=== PATIENT | male | born 1950 | race Caucasian/White ===

== ENCOUNTER 2017-01-05 23:15 | Inpatient (IN) | payer OTHER ==
--- NOTE | ~2017-01-05 | OP ---
Record Of Operation [facility] [address] [place]. [address] NAME: CINTHYA MARSH : 54 STATUS : ADM IN PAT#: [id number] AGE: 66 ADM/REG DATE : 01/06/17 MR#: [id number] REPORT SERV DATE: 01/11/17 DICTATED BY: ROLY CHAVIS III DATE: 01/11/17 REPORT STATUS : Draft TRANSCRIBED BY: MODL DATE: 01/11/17 DATE OF PROCEDURE: 01/11/2017 PREOPERATIVE DIAGNOSES: 1. Right ureteral calculus. 2. Sepsis of urinary origin. POSTOPERATIVE DIAGNOSES: 1. Right ureteral calculus. 2. Bladder calculi x3. PROCEDURES: Cystoscopy, right retrograde pyelogram, and right ureteral stent placement. SURGEON: Roly Chavis M.D. ANESTHESIA: General. INDICATION: Mr. Marsh is a 66-year-old white male with a history nephrolithiasis. He is admitted with obstructive pyelonephritis. CT scan revealed a 5-6 mm right ureteral calculus at the level of the iliac vessels with hydronephrosis above. He has been found to have sepsis of urinary origin and has received several days of vancomycin. Consent is obtained for cystoscopy, right retrograde pyelogram, and stent placement. DESCRIPTION OF PROCEDURE: After consent was obtained, the patient was identified. He was taken to the OR and put to sleep. He was positioned in the low lithotomy position and prepped and draped in usual fashion. The 22-German cystoscope was made ready and advanced along the course of urethra into the bladder. The prostate did appear to be enlarged. The bladder was entered. Three bladder stones were noted. A cone-tipped ureteral catheter was flushed and inserted into the right ureteral orifice. Attempts at retrograde pyelogram were performed. The contrast went up to the area of the stone, but did not go past it and the ureter was somewhat patulous preventing opacification and so there would be backflow with contrast. I was able to pass a Glidewire up into the proximal ureter and collecting system. Over this, I advanced the Grover. The wire was removed and contrast was injected through the Grover eliminating the dilated pyelocaliceal system. The guidewire was then advanced through the Grover and the Grover was removed. A 7 x 26 cm double-J ureteral stent was advanced over the wire. When in position, the wire was removed. The stent was noted to coil in the renal collecting system, as well as the bladder. The bladder was then drained. The scope was removed. The patient was awakened and taken to recovery in stable condition. PH/MODL Roly Chavis III, M.D. Record Of [address] [address] NAME: CINTHYA MARSH : 54 STATUS : ADM IN [facility]#: [id number] AGE: 66 ADM/REG DATE : 01/06/17 MR#: [id number] REPORT SERV DATE: 01/11/17 DICTATED BY: ROLY CHAVIS III DATE: 01/11/17 REPORT STATUS : Draft TRANSCRIBED BY: SERVANDO DATE: 01/11/17 / [id number] CC: MD Sahil Overton M.D.
--- NOTE | ~2017-01-05 | DS ---
Discharge Summary [address] [place]. [address] NAME: CINTHYA MARSH : 54 STATUS : DIS IN PAT#: [id number] AGE: 66 ADM/REG DATE : 01/06/17 MR#: [id number] REPORT SERV DATE: 01/14/17 DICTATED BY: RAI VALDOVINOS DATE: 01/13/17 REPORT STATUS : Draft TRANSCRIBED BY: MODL DATE: 01/13/17 ADMISSION DATE: 01/06/2017 DISCHARGE DATE: 01/13/2017 PROCEDURES DONE: 1. 01/06/2017, chest x-ray: Lungs are clear. Heart size normal. 2. 01/06/2017, KUB: Extensive fatty infiltration of liver, similar to previous CT scans. Mild right hydronephrosis. The patient has had previous hydronephrosis due to ureteral stone on abdominal CT from 06/2013. Renal stone CT is recommended to assess current ureteral stones. 3. 01/07/2016, chest x-ray: No acute cardiopulmonary abnormality. 4. 01/07/2016, CT of the chest without contrast: No thoracic adenopathy or active pulmonary disease. Moderate focal fibrosis at the posterior left lung base. Moderate coronary artery calcification. Nonspecific hepatic steatosis pattern. 5. 01/06/2017, CT scan of the abdomen and kidney per protocol: Right ureteral calculus with moderate proximal obstructive dilatation, perinephric/periureteral edema. Bilateral nonobstructing intrarenal calculi. Urinary bladder calculi. Hepatomegaly with hepatic steatosis. Splenomegaly. Fat-containing umbilical hernia. Diverticulosis without evidence of diverticulitis. Abdominal aortic aneurysm. 6. 01/06/2017, V/Q scan: Study is low probability for PE. Extensive airway deposition of aerosolized tracers consistent with airway disease. 7. 01/10/2017, operative report by Dr. Ann:. a. Preoperative Diagnosis: Right ureteral calculus with sepsis of urinary origin. b. Postoperative Diagnosis: Right ureteral calculus with bladder calculi x3. The patient underwent cystoscopy with right retrograde pyelogram and right ureteral stent placement. CONSULT: Albino Farmer M.D. for Urology. REASON FOR ADMISSION: Shortness of breath and cough. HISTORY OF HOSPITAL STAY: A 66-year-old white male with past medical history of nephrolithiasis with history of hydronephrosis, diabetes type 2, AAA of 3.8 cm, and hypothyroidism presenting with cough and shortness of breath of unknown etiology. The patient was admitted for further evaluation of his cough and shortness of breath. A V/Q scan was done which shows negative for PE. Two chest x-rays show the lungs are clear with no active pulmonary disease. However, CT scan of the abdomen and pelvis shows right hydronephrosis with right renal calculi. Urology was consulted for further evaluation. Dr. Ann did a right pyelogram and cystoscopy which shows bladder calculi as well as renal calculi. The patient is also having double-J stent placed on the right side. Fortunately for the patient, his renal function also greatly improved with treatment. His initial creatinine was 0.66, and upon discharge, creatinine was 1.55. The patient was advised to continue drinking fluids in order to get his kidney function back to normal. In addition, the patient's glucose has also been well-tolerated during the hospital stay. Made some adjustments regarding his insulin regarding requiring level 3 as well as Levemir 20 units Discharge Summary [address] [address] NAME: CINTHYA MARSH : 54 STATUS : DIS IN PAT#: [id number] AGE: 66 ADM/REG DATE : 01/06/17 MR#: [id number] REPORT SERV DATE: 01/14/17 DICTATED BY: RAI VALDOVINOS DATE: 01/13/17 REPORT STATUS : Draft TRANSCRIBED BY: SERVANDO DATE: 01/13/17 subcu a.m. and 60 units subcu p.m. DISPOSITION: The patient feels fine, no complaints. ACTIVITIES: As tolerated. DIET: Diabetic. INSTRUCTIONS UPON DISCHARGE: The patient to follow up with Urology within two weeks' time. MEDICATION UPON DISCHARGE: 1. Aleve 440 mg p.o. daily p.r.n. 2. Levemir 60 units subcu at bedtime. 3. Insulin sliding scale, level 3. 4. Levothyroxine 150 mcg p.o. daily. 5. Levemir 20 subcu daily. 6. Metformin 1000 mg p.o. b.i.d. 7. Humalog 15 units subcu a day. 8. Lisinopril 5 mg p.o. daily. DIAGNOSES UPON DISCHARGE: 1. Shortness of breath and cough secondary to right renal calculi/hydronephrosis. 2. Renal calculi with hydronephrosis, status post cystoscopy with right double-J stent. 3. Diabetes type 2. 4. Acute kidney injury secondary to hydronephrosis. 5. Hypothyroidism. 6. Obesity. OMER/MODL Rai Valdovinos MD / [id number] CC: MD Sahil Abraham M.D.
--- NOTE | ~2017-01-05 | CN ---
Consultation Report [facility] [address] [place]. [address] NAME: CINTHYA MARSH : 54 STATUS : ADM IN PAT#: [id number] AGE: 66 ADM/REG DATE : 01/06/17 MR#: [id number] REPORT SERV DATE: 01/10/17 DICTATED BY: Albino GALLOWAY DATE: 01/10/17 REPORT STATUS : Draft TRANSCRIBED BY: MODL DATE: 01/10/17 CONSULTATION NOTE DATE OF CONSULTATION: 01/10/2017 CHIEF COMPLAINT: Recent sepsis with right hydronephrosis and obstructing stone. HISTORY OF PRESENT ILLNESS: Mr. Marsh is a 66-year-old white male, who is a patient of Dr. Gareth Ann. He has a history of urolithiasis and was admitted 01/06/2017 with "severe sepsis" and acute kidney injury with a creatinine of 2.18. CT and ultrasound on 01/06/2017 showed right hydronephrosis and obstructing 8 mm stone at L1 with some bladder stones. We were consulted this morning. His creatinine has improved from 2.18 to 1.66. His white count has decreased from 16.8 to 9.2. He is currently feeling better and is asymptomatic, specifically denied any flank pain or voiding dysfunction. His breathing has improved as well. 2/2 blood cultures were positive for Staph mecA and no urine culture was done. PAST MEDICAL HISTORY: Pneumonia, urolithiasis, diabetes mellitus, abdominal aortic aneurysm, hypothyroidism, COPD. PAST SURGICAL HISTORY: 1. Left knee surgery. 2. Laser lithotripsy of right ureteral stone. 3. Cystolitholapaxy. 4. Right foot surgery. HOME MEDICATIONS: Insulin, metformin, naproxen, thyroid medication. ALLERGIES: NO KNOWN DRUG ALLERGIES. REVIEW OF SYSTEMS: A full 14-point review of systems was obtained and was negative except as noted above. SOCIAL HISTORY: The patient is a former smoker. He drinks alcohol on occasion. He is retired. FAMILY HISTORY: The patient is adopted. No known urologic disease. PHYSICAL EXAMINATION: GENERAL: Comfortable appearing, 66-year-old white male, alert and oriented x3. Conversant. VITAL SIGNS: Afebrile with normal vital signs. HEENT: Normocephalic, atraumatic. CHEST: No respiratory distress. HEART: Regular rate and rhythm. Consultation Report [facility] [address] [place]. [id number] NAME: CINTHYA MARSH : 54 STATUS : ADM IN PAT#: [id number] AGE: 66 ADM/REG DATE : 01/06/17 MR#: [id number] REPORT SERV DATE: 01/10/17 DICTATED BY: Albino GALLOWAY DATE: 01/10/17 REPORT STATUS : Draft TRANSCRIBED BY: SERVANDO DATE: 01/10/17 ABDOMEN: Protuberant. Nontender, nondistended. No CVA tenderness elicited. No suprapubic distention. Normal appearing external genitalia. EXTREMITIES: Peripheral exam reveals a 1+ lower extremity edema. PERTINENT LABORATORY: As noted above. Review of imaging: CT shows an 8 mm stone at L1 on the right along with bladder stones. IMPRESSION: 1. Obstructing right ureteral stone. 2. 2/2 positive blood cultures for Staph mecA. 3. Leukocytosis, currently improving. 4. Acute kidney injury, currently improving. PLAN: I am not positive that this obstructing stone has a source of his Staph, but there is no other source. He does need drainage of his right kidney. Since he has improved overall and stable, I do not think that this is emergent, but we will keep him n.p.o. after midnight to allow Dr. Ann assess and consider likely stent placement in the morning. I discussed this with the patient and his , they are comfortable with this plan. If anything should change, then we can review our options. MADELYN/SERVANDO Albino Galloway M.D. / [id number] CC: MD Sahil Overton M.D. Paul Henson III, M.D.
--- NOTE | ~2017-01-05 | HP ---
History And Physical [address] [address] NAME: CINTHYA MARSH : 54 STATUS : ADM IN PAT#: [id number] AGE: 66 ADM/REG DATE : 01/06/17 MR#: [id number] REPORT SERV DATE: 01/06/17 DICTATED BY: DONTE TOLENTINO DATE: 01/06/17 REPORT STATUS : Draft TRANSCRIBED BY: MODL DATE: 01/06/17 DATE OF ADMISSION: 01/06/2017 CHIEF COMPLAINT: A 66-year-old male presenting with increasing shortness of breath and cough. HISTORY OF PRESENT ILLNESS: The patient's history was obtained through careful interview with patient and , coupled with review of [facility] and [facility] medical records. About two days prior to admission, the patient began to develop increasing shortness of breath and a nonproductive cough. He does get lightheadedness and subjective chills, but no fevers. He describes pleurisy in the right middle of his chest, sharp quality, 3/10 severity, exacerbated by coughing. No palpitations. No abdominal pain. No diarrhea. No rash. He claims he has good diabetes control. No change in appetite. REVIEW OF SYSTEMS: Otherwise 14-point review of systems was obtained and was negative. PAST MEDICAL HISTORY: 1. Pneumonia, 06/2016. 2. Nephrolithiasis with hydronephrosis, seen by Dr. Ann. 3. Diabetes. 4. Abdominal aortic aneurysm, 3.8 cm. 5. Hypothyroidism. PAST SURGICAL HISTORY: 1. Left knee surgery. 2. Right foot surgery. ALLERGIES: NO KNOWN DRUG ALLERGIES. SOCIAL HISTORY: Quit smoking. Drinks alcohol. Is . Lives in [place], [place]. Retired sheet metal journeyman. Has children, two daughters and has grandchildren. FAMILY HISTORY: Adopted. CURRENT MEDICATIONS: Levemir 60 units subcutaneous at bedtime, Humalog 15 units subcutaneous before each meal, Glucophage a 1000 mg p.o. b.i.d., Aleve, thyroid medication, kidney medication. PHYSICAL EXAMINATION: History And Physical [address] [address] NAME: CINTHYA MARSH : 54 STATUS : ADM IN [facility]#: [id number] AGE: 66 ADM/REG DATE : 01/06/17 MR#: [id number] REPORT SERV DATE: 01/06/17 DICTATED BY: DONTE TOLENTINO DATE: 01/06/17 REPORT STATUS : Draft TRANSCRIBED BY: SERVANDO DATE: 01/06/17 VITAL SIGNS: Temperature 98.5, pulse 146, blood pressure 162/70, respiratory rate 42, O2 saturation 93% on room air. GENERAL: Pleasant, cooperative male. He appears nontoxic. No significant distress. HEENT: Pupils equal, round, and reactive to light. No conjunctival pallor. No scleral icterus. Nares are patent. Oropharynx is clear of obstruction. Very dry mucous membranes. NECK: Trachea midline. No thyromegaly. LYMPH: No cervical lymphadenopathy. No supraclavicular lymphadenopathy. RESPIRATORY: Scattered wheezes and rhonchi on examination. No rales. The patient has a labored respiratory effort. No focal egophony. CARDIOVASCULAR: Tachycardic, regular rhythm. No murmurs, rubs, or gallops. No extremity edema is appreciated. ABDOMEN: Soft, nontender, nondistended. Normal bowel sounds auscultated throughout. No organomegaly. DERMATOLOGICAL: Warm and dry extremities. No pallor. No cyanosis. PSYCHIATRIC: Normal affect. Good mood. Alert and oriented x3. LABORATORY DATA: White blood cell count 22, hemoglobin 13, hematocrit 38, platelets 175. Sodium 134, potassium 3.9, chloride 101, bicarb 20, BUN 23, creatinine 2.35, glucose 315. Influenza negative. INR 1.2. Lactic acid 3.2 initially with a 3-hour repeat of 2.9. Procalcitonin is quite elevated at 12. Troponin 0.21. Liver enzymes within normal limits. ABG demonstrates pH 7.46, PaCO2 of 38, PaO2 of 79, and a bicarb of 21. STUDIES: 1. CT scan of the chest without contrast shows no acute process. 2. A V/Q scan was low probability. 3. EKG by my own evaluation shows sinus tachycardia, left anterior fascicular block. ASSESSMENT AND PLAN: 1. Severe sepsis with lactic acidosis of 3.2, tachycardia, tachypnea, white blood cell count of 22, acute renal failure, procalcitonin elevated at 12. Check blood cultures. Place on broad IV antibiotics including cefepime and vancomycin. 2. Chronic obstructive pulmonary disease. Place on Duo nebulizers. 3. Uncontrolled diabetes. Check hemoglobin A1c. Continue Levemir, basal insulin, and sliding scale insulin. 4. Elevated troponin, we will follow closely. Question stress response? Consider cardiology consult? Add aspirin. 5. Acute renal failure. Try IV fluids. Check renal ultrasound. Patient discussed with Dr. Larson, critical care physician. NEY/SERVANDO Donte Tolentino M.D. History And Physical [address] [address] NAME: CINTHYA MARSH : 54 STATUS : ADM IN [facility]#: [id number] AGE: 66 ADM/REG DATE : 01/06/17 MR#: [id number] REPORT SERV DATE: 01/06/17 DICTATED BY: DONTE TOLENTINO DATE: 01/06/17 REPORT STATUS : Draft TRANSCRIBED BY: SERVANDO DATE: 01/06/17 / [id number] CC: Jordi Duran M.D.
[~2017-01-05 23:15] MED LIST: ADVIL PO; ALEVE220 MG PO; CENTRUM TAB1 TAB PO; CIP5 PO; CLARIT10 PO; CRANBERRY1 TAB PO; GLUCPH PO; IBU-200200 MG PO; INSULIN; LEVAQUIN750 MG PO; LEVEMIR SC; LEVOTHYROXIN112 MCG PO; MUCINEX600 MG PO; PCET PO; PRIN5 PO; PYR200 PO; SYNTHROID137 MCG PO
[2017-01-05 23:33] LABS: BASOPHILS 0.1 %; BASOPHILS ABSOLUTE 0.02 10/3/uL (0.0-0.16); EOSINOPHILS 0 %; EOSINOPHILS ABSOLUTE 0.01 10/3/uL (0.0-0.53); ER CBC TAT 0 Hrs 16 MinsNP; HEMATOCRIT 37.9 % (40.0-51.0); HEMOGLOBIN 13.5 g/dL (13.6-17.8); IMMATURE GRANULOCYTES 0.4 %; IMMATURE GRANULOCYTES ABSOLUTE 0.09 10/3/uL (0.0-0.11); LYMPHOCYTES 5.1 %; LYMPHOCYTES ABSOLUTE 1.11 10/3/uL (0.67-4.30); MANUAL DIFF NO %; MEAN CORPUS HGB CONC 35.6 g/dL (32.0-36.0); MEAN CORPUSCULAR HEMOGLOB 32.8 pg (26.0-34.0); MEAN PLATELET VOLUME 10.4 fL (9.2-13.0); MONOCYTES 6.5 %; MONOCYTES ABSOLUTE 1.42 10/3/uL (0.21-1.20); NEUTROPHILS 87.9 %; NEUTROPHILS ABSOLUTE 19.31 10/3/uL (2.02-8.40); PLATELET COUNT 175 10/3/uL (150-400); RBC DISTRIBUTION WIDTH 14.2 % (12.0-16.0); RED CELL COUNT 4.12 10/6/uL (4.7-6.1)
[2017-01-05 23:40] LABS: INTERNATIONAL NORMAL RATI 1.2 UNITS (-); PROTIME (NOT ORD) 15.5 SEC (12.0-14.5)
[2017-01-05 23:51] LABS: A/G RATIO 0.7 (0.7-1.9); ALBUMIN 3.2 G/DL (3.5-5.0); CALCIUM, SERUM 9.5 MG/DL (8.5-10.4); CHLORIDE, SERUM 101 MMOL/L (96-112); GLOBULIN 4.5 G/DL (2.5-4.1); POTASSIUM, SERUM 3.9 MMOL/L (3.5-5.3); SGOT(AST) 44 U/L (5-40); SGPT(ALT) 56 U/L (5-65); SODIUM, SERUM 134 MMOL/L (135-148); TOTAL PROTEIN 7.7 G/DL (6.0-8.5)
[2017-01-05 23:53] LABS: ALKALINE PHOSPHATASE 87 U/L (45-117); BUN (BLOOD UREA NITROGEN) 23 MG/DL (6-23); CO2 (CARBON DIOXIDE) 20 MMOL/L (24-34); CREATININE 2.53 MG/DL (0.70-1.30); GFR AFRICAN AMERICAN 30 ML/MIN (>=60); GFR NON AFRICAN AMERICAN 26 ML/MIN (>=60); GLUCOSE, SERUM 315 MG/DL (60-99); TOTAL BILIRUBIN 1.1 MG/DL (0-1.2); TROPONIN I 0.21 NG/ML (<0.05)
[2017-01-05 23:56] LABS: LACTATE 3.2 MMOL/L (0.3-2.4)
[2017-01-06 00:15] LABS: BE (BASE EXCESS) -1.8 MEQ/L (0 +/- 2.5); CARBOXYHEMOGLOBIN 1.4 % (0-3); DEVICE NC; HCO3 (ACTUAL BICARBONATE) 20.8 MEQ/L (23-27); HEMOBLOGIN CONTENT 13.8 G/DL (14-18); INSTRUMENT SERIAL # 8087; METHEMOGLOBIN 0.3 % (0-3); O2 CONTENT 18.4 VOL% (18-24); PCO2 (CO2 TENSION) 30 MMHG (35-45); PO2 (O2 TENSION) 79 MMHG (79-93); SAMPLE Arterial; pH 7.46 (7.37-7.43)
[2017-01-06 00:16] LABS: INFLUENZA A SCREEN NEGATIVE (NEGATIVE); INFLUENZA B SCREEN NEGATIVE (NEGATIVE)
[2017-01-06] MEDS ORDERED: GLUCOPHAGE1000 MG PO (00:55)
[2017-01-06 00:56] LABS: D-DIMER QUANTITATIVE 3.85 ug/mLFEU (< 0.50)
[2017-01-06] MEDS ORDERED: LEVEMFLXPN SC (00:56)
[2017-01-06] MEDS ORDERED: HUMALOGPEN SC (00:58)
[2017-01-06] MEDS ORDERED: ALEVE220 MG PO (00:59)
[2017-01-06] MEDS ORDERED: LEVOTHYROXIN150 MCG PO (00:59)
[2017-01-06] MEDS ORDERED: PRIN5 PO (01:00)
[2017-01-06 04:32] LABS: ASCORBIC ACID (UR NOT ORDER) NEG (NEG); BILIRUBIN, URINE NEGATIVE (NEG); ER URINALYSIS TAT 0 Hrs 00 Mins; KETONE, URINE NEGATIVE (NEG); LEUKOCYTE ESTERASE(NOT OR SMALL (NEG); NITRITE (URINE) NEG (NEG); WBC (NOT ORDERED) (RFLEX) 84 (0-5)
[2017-01-06 08:18] LABS: BASOPHILS 0.1 %; BASOPHILS ABSOLUTE 0.02 10/3/uL (0.0-0.16); EOSINOPHILS 0.1 %; EOSINOPHILS ABSOLUTE 0.01 10/3/uL (0.0-0.53); HEMATOCRIT 36.7 % (40.0-51.0); HEMOGLOBIN 12.6 g/dL (13.6-17.8); IMMATURE GRANULOCYTES 0.3 %; IMMATURE GRANULOCYTES ABSOLUTE 0.05 10/3/uL (0.0-0.11); LYMPHOCYTES 5.3 %; LYMPHOCYTES ABSOLUTE 0.89 10/3/uL (0.67-4.30); MEAN CORPUS HGB CONC 34.3 g/dL (32.0-36.0); MEAN CORPUSCULAR HEMOGLOB 31.8 pg (26.0-34.0); MEAN CORPUSCULAR VOLUME 92.7 fL (80-100); MEAN PLATELET VOLUME 10.7 fL (9.2-13.0); MONOCYTES 6.1 %; MONOCYTES ABSOLUTE 1.03 10/3/uL (0.21-1.20); NEUTROPHILS 88.1 %; NEUTROPHILS ABSOLUTE 14.78 10/3/uL (2.02-8.40); PLATELET COUNT 165 10/3/uL (150-400); RBC DISTRIBUTION WIDTH 14.5 % (12.0-16.0); RED CELL COUNT 3.96 10/6/uL (4.7-6.1); WHITE BLOOD CELLS 16.8 10/3/uL (4.5-10.5)
[2017-01-06 08:19] LABS: MANUAL DIFF NO %
[2017-01-06 08:25] LABS: INTERNATIONAL NORMAL RATI 1.2 UNITS (-); PARTIAL THROMBO TIME 38.8 SEC (22.5-37.2); PROTIME (NOT ORD) 15.5 SEC (12.0-14.5)
[2017-01-06 08:39] LABS: A/G RATIO 0.7 (0.7-1.9); ALBUMIN 2.9 G/DL (3.5-5.0); ALKALINE PHOSPHATASE 99 U/L (45-117); BUN (BLOOD UREA NITROGEN) 23 MG/DL (6-23); CHLORIDE, SERUM 104 MMOL/L (96-112); CO2 (CARBON DIOXIDE) 20 MMOL/L (24-34); CREATININE 2.18 MG/DL (0.70-1.30); GFR AFRICAN AMERICAN 36 ML/MIN (>=60); GFR NON AFRICAN AMERICAN 31 ML/MIN (>=60); GLOBULIN 4.3 G/DL (2.5-4.1); GLUCOSE, SERUM 232 MG/DL (60-99); SGOT(AST) 58 U/L (5-40); SGPT(ALT) 55 U/L (5-65); SODIUM, SERUM 137 MMOL/L (135-148); TOTAL PROTEIN 7.2 G/DL (6.0-8.5); TROPONIN I 0.13 NG/ML (<0.05)
[2017-01-06 09:12] LABS: PROCALCITONIN 11.17 ng/mL (<0.5)
[2017-01-07 04:48] LABS: BASOPHILS 0.1 %; BASOPHILS ABSOLUTE 0.02 10/3/uL (0.0-0.16); EOSINOPHILS ABSOLUTE 0.14 10/3/uL (0.0-0.53); HEMATOCRIT 34.3 % (40.0-51.0); HEMOGLOBIN 11.6 g/dL (13.6-17.8); IMMATURE GRANULOCYTES 0.5 %; IMMATURE GRANULOCYTES ABSOLUTE 0.07 10/3/uL (0.0-0.11); LYMPHOCYTES ABSOLUTE 1.07 10/3/uL (0.67-4.30); MEAN CORPUS HGB CONC 33.8 g/dL (32.0-36.0); MEAN CORPUSCULAR HEMOGLOB 31.5 pg (26.0-34.0); MEAN CORPUSCULAR VOLUME 93.2 fL (80-100); MEAN PLATELET VOLUME 10.5 fL (9.2-13.0); MONOCYTES 10.9 %; MONOCYTES ABSOLUTE 1.47 10/3/uL (0.21-1.20); NEUTROPHILS 79.5 %; NEUTROPHILS ABSOLUTE 10.66 10/3/uL (2.02-8.40); PLATELET COUNT 144 10/3/uL (150-400); RBC DISTRIBUTION WIDTH 14.6 % (12.0-16.0); RED CELL COUNT 3.68 10/6/uL (4.7-6.1); WHITE BLOOD CELLS 13.4 10/3/uL (4.5-10.5)
[2017-01-07 04:53] LABS: MANUAL DIFF NO %
[2017-01-07 05:01] LABS: ALBUMIN 2.6 G/DL (3.5-5.0); BUN (BLOOD UREA NITROGEN) 23 MG/DL (6-23); CALCIUM, SERUM 8.7 MG/DL (8.5-10.4); CHLORIDE, SERUM 106 MMOL/L (96-112); CO2 (CARBON DIOXIDE) 22 MMOL/L (24-34); CREATININE 2.07 MG/DL (0.70-1.30); GFR AFRICAN AMERICAN 38 ML/MIN (>=60); GFR NON AFRICAN AMERICAN 33 ML/MIN (>=60); GLUCOSE, SERUM 150 MG/DL (60-99); PHOSPHORUS, SERUM 2.7 MG/DL (2.5-4.5); POTASSIUM, SERUM 3.9 MMOL/L (3.5-5.3); SODIUM, SERUM 139 MMOL/L (135-148)
[2017-01-07 06:48] LABS: PROCALCITONIN 10.75 ng/mL (<0.5)
[2017-01-08 05:24] LABS: BASOPHILS 0.2 %; BASOPHILS ABSOLUTE 0.03 10/3/uL (0.0-0.16); EOSINOPHILS 1.4 %; EOSINOPHILS ABSOLUTE 0.18 10/3/uL (0.0-0.53); HEMATOCRIT 33.6 % (40.0-51.0); HEMOGLOBIN 11.5 g/dL (13.6-17.8); IMMATURE GRANULOCYTES 0.7 %; IMMATURE GRANULOCYTES ABSOLUTE 0.09 10/3/uL (0.0-0.11); LYMPHOCYTES 6.8 %; LYMPHOCYTES ABSOLUTE 0.86 10/3/uL (0.67-4.30); MEAN CORPUS HGB CONC 34.2 g/dL (32.0-36.0); MEAN CORPUSCULAR HEMOGLOB 31.7 pg (26.0-34.0); MEAN CORPUSCULAR VOLUME 92.6 fL (80-100); MEAN PLATELET VOLUME 10.5 fL (9.2-13.0); MONOCYTES 10.4 %; MONOCYTES ABSOLUTE 1.31 10/3/uL (0.21-1.20); NEUTROPHILS 80.5 %; NEUTROPHILS ABSOLUTE 10.09 10/3/uL (2.02-8.40); PLATELET COUNT 159 10/3/uL (150-400); RBC DISTRIBUTION WIDTH 14.6 % (12.0-16.0); RED CELL COUNT 3.63 10/6/uL (4.7-6.1); WHITE BLOOD CELLS 12.6 10/3/uL (4.5-10.5)
[2017-01-08 05:30] LABS: MANUAL DIFF NO %
[2017-01-08 05:36] LABS: BUN (BLOOD UREA NITROGEN) 23 MG/DL (6-23); CALCIUM, SERUM 8.8 MG/DL (8.5-10.4); CHLORIDE, SERUM 105 MMOL/L (96-112); CO2 (CARBON DIOXIDE) 21 MMOL/L (24-34); CREATININE 1.84 MG/DL (0.70-1.30); GFR AFRICAN AMERICAN 44 ML/MIN (>=60); GFR NON AFRICAN AMERICAN 38 ML/MIN (>=60); POTASSIUM, SERUM 3.7 MMOL/L (3.5-5.3); SODIUM, SERUM 137 MMOL/L (135-148)
[2017-01-08 05:41] LABS: GLUCOSE, SERUM 114 MG/DL (60-99)
[2017-01-09 07:22] LABS: BASOPHILS 0.3 %; BASOPHILS ABSOLUTE 0.03 10/3/uL (0.0-0.16); EOSINOPHILS 1.6 %; EOSINOPHILS ABSOLUTE 0.18 10/3/uL (0.0-0.53); HEMATOCRIT 34.4 % (40.0-51.0); HEMOGLOBIN 11.9 g/dL (13.6-17.8); IMMATURE GRANULOCYTES 0.8 %; IMMATURE GRANULOCYTES ABSOLUTE 0.09 10/3/uL (0.0-0.11); LYMPHOCYTES 10.6 %; LYMPHOCYTES ABSOLUTE 1.22 10/3/uL (0.67-4.30); MEAN CORPUS HGB CONC 34.6 g/dL (32.0-36.0); MEAN CORPUSCULAR HEMOGLOB 32.2 pg (26.0-34.0); MEAN PLATELET VOLUME 10.4 fL (9.2-13.0); MONOCYTES ABSOLUTE 1.38 10/3/uL (0.21-1.20); NEUTROPHILS 74.7 %; NEUTROPHILS ABSOLUTE 8.63 10/3/uL (2.02-8.40); PLATELET COUNT 177 10/3/uL (150-400); RBC DISTRIBUTION WIDTH 14.7 % (12.0-16.0); WHITE BLOOD CELLS 11.5 10/3/uL (4.5-10.5)
[2017-01-09 07:28] LABS: MANUAL DIFF NO %
[2017-01-09 07:34] LABS: A/G RATIO 0.6 (0.7-1.9); ALBUMIN 2.5 G/DL (3.5-5.0); ALKALINE PHOSPHATASE 125 U/L (45-117); BUN (BLOOD UREA NITROGEN) 21 MG/DL (6-23); CALCIUM, SERUM 8.6 MG/DL (8.5-10.4); CHLORIDE, SERUM 105 MMOL/L (96-112); CO2 (CARBON DIOXIDE) 22 MMOL/L (24-34); CREATININE 1.67 MG/DL (0.70-1.30); GFR AFRICAN AMERICAN 49 ML/MIN (>=60); GFR NON AFRICAN AMERICAN 43 ML/MIN (>=60); GLOBULIN 4.2 G/DL (2.5-4.1); GLUCOSE, SERUM 131 MG/DL (60-99); POTASSIUM, SERUM 3.9 MMOL/L (3.5-5.3); SGOT(AST) 104 U/L (5-40); SGPT(ALT) 100 U/L (5-65); SODIUM, SERUM 138 MMOL/L (135-148); TOTAL BILIRUBIN 0.8 MG/DL (0-1.2); TOTAL PROTEIN 6.7 G/DL (6.0-8.5)
[2017-01-09 07:44] LABS: PLATELET ESTIMATE ADQ (ADEQUATE); RBC MORPHOLOGY NORM (NORMAL)
[2017-01-10 05:44] LABS: A/G RATIO 0.7 (0.7-1.9); ALBUMIN 2.5 G/DL (3.5-5.0); ALKALINE PHOSPHATASE 139 U/L (45-117); BUN (BLOOD UREA NITROGEN) 18 MG/DL (6-23); CALCIUM, SERUM 8.7 MG/DL (8.5-10.4); CHLORIDE, SERUM 105 MMOL/L (96-112); CO2 (CARBON DIOXIDE) 23 MMOL/L (24-34); CREATININE 1.66 MG/DL (0.70-1.30); GFR AFRICAN AMERICAN 50 ML/MIN (>=60); GFR NON AFRICAN AMERICAN 43 ML/MIN (>=60); GLOBULIN 3.7 G/DL (2.5-4.1); GLUCOSE, SERUM 173 MG/DL (60-99); POTASSIUM, SERUM 3.8 MMOL/L (3.5-5.3); SGOT(AST) 109 U/L (5-40); SGPT(ALT) 118 U/L (5-65); SODIUM, SERUM 142 MMOL/L (135-148); TOTAL BILIRUBIN 0.7 MG/DL (0-1.2); TOTAL PROTEIN 6.2 G/DL (6.0-8.5)
[2017-01-10 05:47] LABS: BASOPHILS 0.7 %; BASOPHILS ABSOLUTE 0.06 10/3/uL (0.0-0.16); EOSINOPHILS 2.6 %; EOSINOPHILS ABSOLUTE 0.24 10/3/uL (0.0-0.53); HEMATOCRIT 34.2 % (40.0-51.0); HEMOGLOBIN 11.8 g/dL (13.6-17.8); IMMATURE GRANULOCYTES 2.9 %; IMMATURE GRANULOCYTES ABSOLUTE 0.27 10/3/uL (0.0-0.11); LYMPHOCYTES ABSOLUTE 1.65 10/3/uL (0.67-4.30); MEAN CORPUS HGB CONC 34.5 g/dL (32.0-36.0); MEAN CORPUSCULAR HEMOGLOB 32.1 pg (26.0-34.0); MEAN CORPUSCULAR VOLUME 92.9 fL (80-100); MEAN PLATELET VOLUME 10.2 fL (9.2-13.0); MONOCYTES 11.9 %; MONOCYTES ABSOLUTE 1.09 10/3/uL (0.21-1.20); NEUTROPHILS 63.9 %; NEUTROPHILS ABSOLUTE 5.87 10/3/uL (2.02-8.40); PLATELET COUNT 197 10/3/uL (150-400); RBC DISTRIBUTION WIDTH 14.7 % (12.0-16.0); RED CELL COUNT 3.68 10/6/uL (4.7-6.1); WHITE BLOOD CELLS 9.2 10/3/uL (4.5-10.5)
[2017-01-10 05:49] LABS: MANUAL DIFF NO %
[2017-01-11 06:23] LABS: BASOPHILS 0.7 %; BASOPHILS ABSOLUTE 0.07 10/3/uL (0.0-0.16); EOSINOPHILS 3.1 %; HEMATOCRIT 35.6 % (40.0-51.0); HEMOGLOBIN 12.4 g/dL (13.6-17.8); IMMATURE GRANULOCYTES ABSOLUTE 0.39 10/3/uL (0.0-0.11); LYMPHOCYTES 18.3 %; LYMPHOCYTES ABSOLUTE 1.79 10/3/uL (0.67-4.30); MANUAL DIFF NO %; MEAN CORPUS HGB CONC 34.8 g/dL (32.0-36.0); MEAN CORPUSCULAR HEMOGLOB 32.3 pg (26.0-34.0); MEAN CORPUSCULAR VOLUME 92.7 fL (80-100); MEAN PLATELET VOLUME 9.8 fL (9.2-13.0); MONOCYTES 8.1 %; MONOCYTES ABSOLUTE 0.79 10/3/uL (0.21-1.20); NEUTROPHILS 65.8 %; NEUTROPHILS ABSOLUTE 6.44 10/3/uL (2.02-8.40); PLATELET COUNT 246 10/3/uL (150-400); RBC DISTRIBUTION WIDTH 14.8 % (12.0-16.0); RED CELL COUNT 3.84 10/6/uL (4.7-6.1); WHITE BLOOD CELLS 9.8 10/3/uL (4.5-10.5)
[2017-01-11 06:38] LABS: A/G RATIO 0.7 (0.7-1.9); ALBUMIN 2.8 G/DL (3.5-5.0); ALKALINE PHOSPHATASE 149 U/L (45-117); BUN (BLOOD UREA NITROGEN) 15 MG/DL (6-23); CALCIUM, SERUM 9.2 MG/DL (8.5-10.4); CHLORIDE, SERUM 108 MMOL/L (96-112); CO2 (CARBON DIOXIDE) 26 MMOL/L (24-34); CREATININE 1.67 MG/DL (0.70-1.30); GFR AFRICAN AMERICAN 49 ML/MIN (>=60); GFR NON AFRICAN AMERICAN 43 ML/MIN (>=60); GLOBULIN 4.3 G/DL (2.5-4.1); POTASSIUM, SERUM 3.7 MMOL/L (3.5-5.3); SGOT(AST) 80 U/L (5-40); SGPT(ALT) 111 U/L (5-65); SODIUM, SERUM 143 MMOL/L (135-148); TOTAL BILIRUBIN 0.7 MG/DL (0-1.2); TOTAL PROTEIN 7.1 G/DL (6.0-8.5)
[2017-01-11 06:41] LABS: GLUCOSE, SERUM 87 MG/DL (60-99)
[2017-01-11 07:38] LABS: PROCALCITONIN 1.71 ng/mL (<0.5)
[2017-01-11 15:52] LABS: ASCORBIC ACID (UR NOT ORDER) NEG (NEG); BILIRUBIN, URINE NEGATIVE (NEG); KETONE, URINE NEGATIVE (NEG); LEUKOCYTE ESTERASE(NOT OR LARGE (NEG)
[2017-01-11 15:53] LABS: WBC (NOT ORDERED) (RFLEX) > 182 (0-5)
[2017-01-13 06:05] LABS: BASOPHILS 0.7 %; BASOPHILS ABSOLUTE 0.06 10/3/uL (0.0-0.16); EOSINOPHILS 3.4 %; EOSINOPHILS ABSOLUTE 0.28 10/3/uL (0.0-0.53); HEMOGLOBIN 11.7 g/dL (13.6-17.8); IMMATURE GRANULOCYTES 3.4 %; IMMATURE GRANULOCYTES ABSOLUTE 0.28 10/3/uL (0.0-0.11); LYMPHOCYTES 24.3 %; LYMPHOCYTES ABSOLUTE 1.98 10/3/uL (0.67-4.30); MEAN CORPUS HGB CONC 33.4 g/dL (32.0-36.0); MEAN CORPUSCULAR HEMOGLOB 31.8 pg (26.0-34.0); MEAN CORPUSCULAR VOLUME 95.1 fL (80-100); MEAN PLATELET VOLUME 9.7 fL (9.2-13.0); MONOCYTES 9.2 %; MONOCYTES ABSOLUTE 0.75 10/3/uL (0.21-1.20); NEUTROPHILS ABSOLUTE 4.81 10/3/uL (2.02-8.40); PLATELET COUNT 277 10/3/uL (150-400); RBC DISTRIBUTION WIDTH 15.2 % (12.0-16.0); RED CELL COUNT 3.68 10/6/uL (4.7-6.1); WHITE BLOOD CELLS 8.2 10/3/uL (4.5-10.5)
[2017-01-13 06:06] LABS: MANUAL DIFF NO %
[2017-01-13 06:23] LABS: A/G RATIO 0.6 (0.7-1.9); ALBUMIN 2.5 G/DL (3.5-5.0); ALKALINE PHOSPHATASE 146 U/L (45-117); CALCIUM, SERUM 8.6 MG/DL (8.5-10.4); CHLORIDE, SERUM 103 MMOL/L (96-112); CO2 (CARBON DIOXIDE) 30 MMOL/L (24-34); GFR AFRICAN AMERICAN 78 ML/MIN (>=60); GFR NON AFRICAN AMERICAN 67 ML/MIN (>=60); GLOBULIN 4.3 G/DL (2.5-4.1); GLUCOSE, SERUM 100 MG/DL (60-99); PHOSPHORUS, SERUM 2.7 MG/DL (2.5-4.5); POTASSIUM, SERUM 3.4 MMOL/L (3.5-5.3); SGOT(AST) 46 U/L (5-40); SGPT(ALT) 77 U/L (5-65); SODIUM, SERUM 142 MMOL/L (135-148); TOTAL PROTEIN 6.8 G/DL (6.0-8.5)
[2017-01-13 06:28] LABS: BUN (BLOOD UREA NITROGEN) 9 MG/DL (6-23); CREATININE 1.15 MG/DL (0.70-1.30)
[2017-01-13] MEDS ORDERED: LEVEMIR SC (12:31)
[2017-02-09] MEDS ORDERED: HUMALOG SC (12:38)
[2017-02-09] MEDS ORDERED: ACET500CAP PO (12:39)
== END 2017-01-13 14:58 | disposition home or self-care (01) | DRG 872 ==
LOC: ER 23:15 → IMCU 01-06 04:11 → 2SO 01-07 13:25
PROVIDERS: Hospitalist; Internal Medicine; Specialist; Urology
PROC: 0T763DZ Dilation of Right Ureter with Intraluminal Device, Percutaneous Approach (ICD-10-PCS; 2017-01-11)
PROC: BT1D1ZZ Fluoroscopy of Right Kidney, Ureter and Bladder using Low Osmolar Contrast (ICD-10-PCS; principal; 2017-01-11 13:45)
DX: A41.9 Sepsis, unspecified organism (principal); N17.9 Acute kidney failure, unspecified; I24.8 Other forms of acute ischemic heart disease; E11.22 Type 2 diabetes mellitus with diabetic chronic kidney disease; N13.6 Pyonephrosis; N13.2 Hydronephrosis with renal and ureteral calculous obstruction; E11.65 Type 2 diabetes mellitus with hyperglycemia; R65.20 Severe sepsis without septic shock; J44.9 Chronic obstructive pulmonary disease, unspecified; N21.0 Calculus in bladder; K57.30 Diverticulosis of large intestine without perforation or abscess without bleeding; K76.0 Fatty (change of) liver, not elsewhere classified; K42.9 Umbilical hernia without obstruction or gangrene; I71.4 Abdominal aortic aneurysm, without rupture; E03.9 Hypothyroidism, unspecified; E66.9 Obesity, unspecified; Z98.890 Other specified postprocedural states; Z87.891 Personal history of nicotine dependence; Z68.39 Body mass index [BMI] 39.0-39.9, adult
CPT/HCPCS: 36600; 71010; 71020; 71250; 74176; 74420; 76700; 78582; 80048; 80053; 80069; 80202; 81001; 82805; 82962; 83605; 83735; 83880; 84100; 84145; 84443; 84484; 85025; 85379; 85610; 85730; 87040; 87077; 87086; 87150; 87186; 87449; 87641; 87804; 93005; 94640; 96365; 96366; 96375; 99291; A9270-GY; A9540; A9567; C1758; C1769; C2617; C9113; J0692; J2405; J3010; J3370; Q9967

== ENCOUNTER 2017-02-12 11:13 | Day surgery (SDC) | payer OTHER ==
[2017-02-10 10:35] LABS: HEMATOCRIT 37.3 % (40.0-51.0); HEMOGLOBIN 12.8 g/dL (13.6-17.8)
[2017-02-10 10:45] LABS: BUN (BLOOD UREA NITROGEN) 17 MG/DL (6-23); CALCIUM, SERUM 9.4 MG/DL (8.5-10.4); CHLORIDE, SERUM 104 MMOL/L (96-112); CO2 (CARBON DIOXIDE) 26 MMOL/L (24-34); CREATININE 1.36 MG/DL (0.70-1.30); GFR AFRICAN AMERICAN 63 ML/MIN (>=60); GFR NON AFRICAN AMERICAN 55 ML/MIN (>=60); GLUCOSE, SERUM 193 MG/DL (60-99); POTASSIUM, SERUM 4.1 MMOL/L (3.5-5.3); SODIUM, SERUM 141 MMOL/L (135-148)
--- NOTE | ~2017-02-12 | OP ---
Record Of Operation [facility] [address] [place]. [address] NAME: CINTHYA MARSH : 54 STATUS : REG [facility] PAT#: [id number] AGE: 66 ADM/REG DATE : 02/12/17 MR#: [id number] REPORT SERV DATE: 02/12/17 DICTATED BY: ROLY CHAVIS III DATE: 02/12/17 REPORT STATUS : Draft TRANSCRIBED BY: MODL DATE: 02/12/17 DATE OF PROCEDURE: 02/12/2017 PREOPERATIVE DIAGNOSIS: 1. Right ureteral calculus. 2. Bladder calculi. POSTOPERATIVE DIAGNOSES: 1. Right ureteral calculus. 2. Bladder calculi. PROCEDURE: Cystoscopy, right ureteroscopy, with laser ablation of stone, and cystolitholapaxy. SURGEON: Roly Chavis M.D. ANESTHESIA: General. SPECIMEN: Stone material. ESTIMATED BLOOD LOSS: Minimal. INDICATION: Mr. Marsh is a 66-year-old white male, with a known right ureteral calculus. He has had multiple stones in the past. He also was found to have three bladder calculi at the time of right ureteral stent placement. He is consent now to address right ureteral stone, as well as the bladder stones. PROCEDURE IN DETAIL: After consent was obtained, the patient was identified, he was taken to the OR and put to sleep. He was positioned in the low lithotomy position and prepped and draped in usual fashion. The 22-Brazilian cystoscope was made ready and advanced along the course of urethra and into the bladder. The stent was visualized and it was already encrusting. It was grasped with the Alligator forceps, and pulled out of the urethral meatus. The distal coil was then cut off the stent. A Glidewire was passed up through the stent and into the renal collecting system as confirmed by fluoroscopy. The stent was removed leaving the wire in place. Rigid ureteroscopy was then performed. The stone was visualized in the pelvis, holmium laser was used to ablate this stone. A basket was used to remove some fragments. A second guidewire was passed up the right ureter, over which a flexible ureteroscope was advanced, the entire ureter was inspected, and no significant fragments or other stones were remaining. The ureteroscope was removed as well as the wire. The cystoscope was then reinserted into the bladder. The same laser fiber was then used to ablate to fragment the bladder stones without difficulty. The Ellik was used to evacuate the fragments which would be passed off as specimen. When all fragments had been removed, the bladder was drained, the scope was removed. The patient was awakened and taken to recovery in stable condition. Record Of Operation [facility] [facility] [address] [place]. [address] NAME: CINTHYA MARSH : 54 STATUS : REG [facility] PAT#: [id number] AGE: 66 ADM/REG DATE : 02/12/17 MR#: [id number] REPORT SERV DATE: 02/12/17 DICTATED BY: ROLY CHAVIS III DATE: 02/12/17 REPORT STATUS : Draft TRANSCRIBED BY: SERVANDO DATE: 02/12/17 PH/SERVANDO Roly Chavis III, M.D. / [id number] CC: Jordi Schuster III, M.D.
[~2017-02-12 11:13] MED LIST changes: +ACET500CAP PO; +GLUCOPHAGE1000 MG PO; +HUMALOG SC; +HUMALOGPEN SC; +LEVEMFLXPN SC; +LEVOTHYROXIN150 MCG PO
[2017-02-18 15:56] LABS: STONE COMPOSITION TWO DNR (())
== END 2017-02-12 18:31 | disposition home or self-care (01) ==
LOC: SDC 11:13
PROVIDERS: Urology
PROC: 0TC68ZZ Extirpation of Matter from Right Ureter, Via Natural or Artificial Opening Endoscopic (ICD-10-PCS; principal; 2017-02-12 12:45)
PROC: 0TCB8ZZ Extirpation of Matter from Bladder, Via Natural or Artificial Opening Endoscopic (ICD-10-PCS; 2017-02-12 12:45)
DX: N20.1 Calculus of ureter (principal); N21.0 Calculus in bladder; I71.4 Abdominal aortic aneurysm, without rupture; I12.9 Hypertensive chronic kidney disease with stage 1 through stage 4 chronic kidney disease, or unspecified chronic kidney disease; E11.22 Type 2 diabetes mellitus with diabetic chronic kidney disease; N18.9 Chronic kidney disease, unspecified; N17.9 Acute kidney failure, unspecified; E78.00 Pure hypercholesterolemia, unspecified; E03.9 Hypothyroidism, unspecified; M19.90 Unspecified osteoarthritis, unspecified site; J44.9 Chronic obstructive pulmonary disease, unspecified; Z87.891 Personal history of nicotine dependence; Z79.4 Long term (current) use of insulin; Z79.84 Long term (current) use of oral hypoglycemic drugs; Z79.899 Other long term (current) drug therapy; Z96.652 Presence of left artificial knee joint; Z98.890 Other specified postprocedural states
CPT/HCPCS: 74420; 80048; 82365; 82962; 85014; 85018; 88300; C1758; C1769; J2250; J2370; J2405; J2710; J3010; Q9967